=== PATIENT | female | born 1960 ===

== ENCOUNTER 2017-09-17 06:41 | Day surgery (SDC) | payer MEDICAID ==
[2017-09-12 09:59] VITALS: BMI 23.4
[2017-09-17] MEDS ORDERED: Propofol 10 mg/ml Inj (20 ML) ONE (08:43)
[2017-09-17] MEDS ORDERED: Sodium Chloride 0.9% 1,000 ML IV SCH (09:15)
[2017-09-17 10:05] VITALS: BP 115/66; PULSE 61; RESP 15; TEMP 98.1; O2SAT 98
== END 2017-09-17 10:34 | disposition home or self-care (01) ==
LOC: ENDO 06:41
PROVIDERS: ATTEND Internal Medicine
DX: Z12.11 Encounter for screening for malignant neoplasm of colon (principal); K57.30 Diverticulosis of large intestine without perforation or abscess without bleeding; K64.8 Other hemorrhoids
CPT/HCPCS: 45378; 82948; J2001; J2704; J2765; J7040 ×2